=== PATIENT | male | born 1950 | race Caucasian/White ===

== ENCOUNTER → 2020-05-25 13:03 | Outpatient (CLI) | payer MEDICARE, MEDICAID, SELFPAY ==
[2020-05-25 15:05] LABS: COVID19 -Nasal RAPID Negative (Negative)
== END ==
PROVIDERS: Visit Provider Physician Assistant
DX: Z20.822 Contact with and (suspected) exposure to COVID-19 (principal)
CPT/HCPCS: 87635; C9803

== ENCOUNTER → 2020-05-26 14:56 | Outpatient (CLI) | payer MEDICARE, MEDICAID, SELFPAY ==
--- NOTE | 2020-05-27 05:11 | DI.NM.S_ITS ---
DATE OF SERVICE: PROCEDURE: Exercise stress test. DATE OF STUDY: 05/26/2020 INDICATIONS: Chest pain with a history of smoking. CARDIAC STRESS: The patient underwent exercise stress test under the supervision of an attending staff. The patient walked on Musa protocol for 3 minutes and 40 seconds, achieved 86% of target heart rate. Baseline blood pressure 116/74. Peak blood pressure 182/100 mmHg. The patient had significant shortness of breath. No chest pain. The baseline rhythm was sinus with some repolarization changes. During exercise, no convincing ischemic changes seen. No significant arrhythmias seen. CONCLUSION: Exercise stress test is negative for inducible ischemia. Poor exercise tolerance. The patient achieved functional aerobic impairment of positive 37% and 4.6 METS of workload. Mildly hypertensive blood pressure response. No chest pain, but had severe dyspnea. No significant arrhythmia seen. Clinical correlation is recommended. Taco March - NUBIA/vladimir/behzad doc#: [id number]/job#: [id number] dd: 05/26/2020 17:40:00 dt: 05/27/2020 04:31:00 DICTATING /COPIES TO: Lashae Ruiz MD COPIES MNE: LOLY;
== END ==
PROVIDERS: PCP Family Medicine; Referring Provider Family Medicine; Visit Provider Family Medicine
DX: R07.9 Chest pain, unspecified (principal); Z87.891 Personal history of nicotine dependence
CPT/HCPCS: 93016; 93017

== ENCOUNTER → 2023-05-03 13:11 | Outpatient (CLI) | payer MEDICARE, MEDICAID, SELFPAY | LOC: RESP 13:12 | PROVIDERS: PCP Nurse Practitioner Family; Referring Provider Internal Medicine Critical Care Medicine; Visit Provider Internal Medicine Critical Care Medicine | DX: J43.2 Centrilobular emphysema (principal); R06.09 Other forms of dyspnea; J84.9 Interstitial pulmonary disease, unspecified; Z87.891 Personal history of nicotine dependence | CPT/HCPCS: 94060; 94726; 94729 ==

== ENCOUNTER → 2023-05-09 11:38 | Outpatient (CLI) | payer MEDICARE, MEDICAID, SELFPAY ==
--- NOTE | 2023-05-09 11:39 | DI.CT.S_ITS ---
PROCEDURE: CT CHEST HIGH RESOLUTION INDICATIONS: Chest xray suggesting ILD, chronic resp failr, eval for ILD TECHNIQUE: Noncontrast 1.0 and 5.0 mm thick contiguous axial sections from the pulmonary apex to the posterior costophrenic angles, with 7 mm thick coronal and sagittal MIP reformats. 1 mm thick dynamic expiratory images acquired through the upper, mid, and lower lungs. 1.0 mm thick axial sections acquired from the elidia to the posterior costophrenic angles in the prone end-inspiration position. For radiation dose reduction, the following was used: automated exposure control, adjustment of mA and/or kV according to patient size. COMPARISON: None. FINDINGS: Image quality: Diagnostic. Lower Neck: No enlarged lymph nodes. Thyroid: No thyroid nodules which require sonographic follow up, per consensus guidelines. Axillae: No enlarged lymph nodes. Chest Wall: Unremarkable. Bones: Unremarkable. Lungs and Pleura: No pneumothorax or pleural effusions. Mild peripheral reticulation without honeycombing or significant bronchiectasis, with subpleural sparing. Bronchial thickening and moderate centrilobular emphysema. Bronchial secretions are present. 3 x 4 millimeter solid nodule, posterior right lower lobe (series 8, image 182). Smaller nodules are present. No air trapping. Heart: Heart size is normal. No pericardial effusion. Two vessel coronary calcifications. Thoracic Vessels: The aorta and pulmonary arteries demonstrate normal size. Mediastinum and Radha: No enlarged lymph nodes. Esophagus: No wall thickening. No hiatal hernia. Upper Abdomen: Visualized upper abdomen solid organs and bowel loops appear normal. IMPRESSION: Mild reticulation in the lung bases, without bronchiectasis. Early scarring or combined emphysema and pulmonary fibrosis are considerations. 3 x 4 millimeter solid nodule in the right lower lobe. Consider 12 month follow-up per Fleischner society guidelines. Bronchial thickening and bronchial secretions, possibly COPD exasperation. Dictated by: Jimmie Watson M.D. on 05/09/2023 at 15:03 Approved by: Jimmie Watson M.D. on 05/09/2023 at 15:08
== END ==
PROVIDERS: PCP Nurse Practitioner Family; Referring Provider Internal Medicine Critical Care Medicine; Visit Provider Internal Medicine Critical Care Medicine
DX: J84.9 Interstitial pulmonary disease, unspecified (principal); R91.1 Solitary pulmonary nodule
CPT/HCPCS: 71250